=== PATIENT | female | born 1950 | race Caucasian/White ===

== ENCOUNTER → 2017-06-28 | Outpatient (CLI) | payer OTHER ==
[~2017-06-28] MED LIST: ASPIRIN 81 MG PO; ASPIRIN 81 MG T81 MG NG; ASPIRIN325 PO; CALCIUM 600 +1 EAC1 PO; CALCIUM OYSTER500 MG PO; CARDIZEM CD300 MG PO; CELEBREX 200 M200 M1 PO; CELEBREX 200 M200 MG PO; CLARITIN10 MG PO; CLOBETASOL PROP60 G3; CLONIDINE HCL0.2 M2 PO; CLONIDINE0.1 PO; CO Q-10100 MG PO; COLACE100 MG PO; ELESTRIN TOP; ELESTRIN144 GM TRANSDERM; ESTRATEST H.S.1 EACH PO; FISH OIL 1,0001 EAC5 PO; GLUCOSAMINE CHONDROI OR; GLUCOSAMINE-CH1 EA32 PO; GLUCOSAMINE-CH1 EAC2 PO; HYDROCHLOROTH12.5 MG PO; HYDROCODONE-AP1 EAC6 PO; METHOCARBAMOL500 M1 PO; MULTIPLE VITAM1 EAC1 PO; MULTIPLE VITAM1 EAC2 PO; MULTIPLE VITAMI PO; NEURONTIN 300300 M1 PO; NEURONTIN 300M300 M2 PO; NORCO 7.5-3251 EACH PO; PERCOCET 7.5-51 EACH PO; PROGESTERONE100 MG PO; PROMETRIUM100 MG PO; PROVERA5 MG PO; PROZAC 10 MG CA10 MG PO; TRIAMTERENE-HC1 EAC1 PO; VISTARIL50 MG PO
== END ==
LOC: RAD 13:21
DX: Z12.31 Encounter for screening mammogram for malignant neoplasm of breast (principal)

== ENCOUNTER → 2017-10-13 | Outpatient (CLI) | payer OTHER ==
[~2017-10-13] MED LIST changes: +ESTRADIOL 1 MG T1 M1 PO; +WELLBUTRIN XL300 MG PO
== END ==
LOC: NUC 09:06
DX: R10.11 Right upper quadrant pain (principal)

== ENCOUNTER 2017-11-27 14:32 | Emergency (ER) | payer OTHER ==
[~2017-11-27] VITALS: Ht 152.4 cm; Wt 61.7 kg
--- NOTE | ~2017-11-27 | EKG ---
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 : 1950 Requested By: Scooter Huitron Order Number: [id number] MD: Thaddeus Padron Measurements Intervals [place] Rate: 101 P: 33 MS: 154 QRS: 56 QRSD: 90 T: 23 QT: 344 QTc: 446 Interpretive Statements Sinus tachycardia Small inferior Q waves Baseline wander in lead(s) II Compared to ECG 11/28/2013 13:46:54 No significant change was found Electronically Signed On 11-27-2017 17:35:21 SENIOR DIRECTOR MARKETING by Thaddeus Padron [email or web address] <ELECTRONICALLY SIGNED> By: Thaddeus Padron MD, [facility] 11/27/17 1735 1442 144 Thaddeus Padron MD, [facility] /EPI
[~2017-11-27 14:32] MED LIST changes: -ESTRADIOL 1 MG T1 M1 PO; -WELLBUTRIN XL300 MG PO
[2017-11-27 15:17] LABS: ABSOLUTE NEUTROPHILS 5.6 thou/uL (1.4-8.2); EOSINOPHILS 3.1 % (0.0-3.0); HEMATOCRIT 39.9 % (37.0-47.0); HEMOGLOBIN 13.6 gm/dL (12.0-15.0); LYMPHOCYTES 23.2 % (24.0-44.0); MCV 85.3 fL (80.0-100.0); MONOCYTES 5.9 % (1.0-8.0); PLATELET COUNT 288 thou/uL (150-400); POLYS 66.8 % (36.0-66.0); RBC 4.68 mil/uL (4.20-5.00); RDW 13.2 % (10.5-14.5); WBC 8.4 thou/uL (4.0-11.0)
[2017-11-27 15:27] LABS: ANION GAP 11 mmol/L (7-16); BUN 30 mg/dL (7-18); CHLORIDE 106 mmol/L (98-107); CO2 24 mmol/L (21-32); CREATININE 1.2 mg/dL (0.6-1.0); GLUCOSE 129 mg/dL (74-106); POTASSIUM 3.7 mmol/L (3.5-5.1); SODIUM 141 mmol/L (136-145)
[2017-11-27 15:38] LABS: TROPONIN-I < 0.04 ng/mL (<0.06)
[2017-11-27] MEDS ORDERED: ESTRADIOL 1 MG T1 M1 PO (16:08)
[2017-11-27] MEDS ORDERED: WELLBUTRIN XL300 MG PO (16:09)
[2017-11-27 17:55] VITALS: BP 115/76
== END 2017-11-27 17:55 | disposition home or self-care (01) ==
LOC: ER 14:32
PROVIDERS: Emergency Medicine
DX: R07.89 Other chest pain (principal); I10 Essential (primary) hypertension; Z90.49 Acquired absence of other specified parts of digestive tract

== ENCOUNTER → 2018-07-09 | Outpatient (CLI) | payer OTHER ==
[~2018-07-09] MED LIST changes: +ESTRADIOL 1 MG T1 M1 PO; +WELLBUTRIN XL300 MG PO
== END ==
LOC: NUC 09:28
DX: K82.9 Disease of gallbladder, unspecified (principal); I10 Essential (primary) hypertension

== ENCOUNTER → 2018-10-15 | Outpatient (CLI) | payer OTHER | LOC: RAD 14:57 | DX: M43.22 Fusion of spine, cervical region (principal); M50.33 Other cervical disc degeneration, cervicothoracic region; M54.12 Radiculopathy, cervical region ==

== ENCOUNTER → 2018-10-19 | Outpatient (CLI) | payer OTHER | LOC: MRI 10:42 | DX: M50.33 Other cervical disc degeneration, cervicothoracic region (principal); M50.223 Other cervical disc displacement at C6-C7 level; M43.22 Fusion of spine, cervical region; M48.02 Spinal stenosis, cervical region; M25.78 Osteophyte, vertebrae ==

== ENCOUNTER → 2018-12-06 | Outpatient (CLI) | payer OTHER | LOC: RAD 10:36 | DX: M43.22 Fusion of spine, cervical region (principal) ==

== ENCOUNTER → 2019-10-24 | Outpatient (CLI) | payer OTHER | LOC: ULTRA 08:03 | DX: N28.1 Cyst of kidney, acquired (principal); K82.8 Other specified diseases of gallbladder ==

== ENCOUNTER 2019-11-24 05:23 | Inpatient (IN) | payer OTHER ==
[~2019-11-24] VITALS: Ht 152.4 cm; Wt 62.6 kg
[2019-11-24 05:41] VITALS: BP 147/82
[2019-11-24 06:15] LABS: ABSOLUTE NEUTROPHILS 4.6 thou/uL (1.4-8.2); BASOPHILS 0.9 % (0.0-2.0); EOSINOPHILS 7.5 % (0.0-3.0); HEMATOCRIT 42.1 % (37.0-47.0); HEMOGLOBIN 13.9 gm/dL (12.0-15.0); LYMPHOCYTES 26.4 % (24.0-44.0); MCH 29.7 pg (26.0-34.0); MCHC 33.1 g/dL (28.0-37.0); MCV 89.6 fL (80.0-100.0); MONOCYTES 8.4 % (1.0-8.0); PLATELET COUNT 288 thou/uL (150-400); POLYS 56.8 % (36.0-66.0); RBC 4.69 mil/uL (4.20-5.00); RDW 13.4 % (10.5-14.5); WBC 8.1 thou/uL (4.0-11.0)
[2019-11-24 06:23] LABS: ANION GAP 12 mmol/L (7-16); BUN 24 mg/dL (7-18); CALCIUM 9.2 mg/dL (8.5-10.1); CHLORIDE 102 mmol/L (98-107); CO2 24 mmol/L (21-32); CREATININE 1.1 mg/dL (0.6-1.0); GLUCOSE 105 mg/dL (74-106); POTASSIUM 3.6 mmol/L (3.5-5.1); SODIUM 138 mmol/L (136-145)
[2019-11-24 06:33] LABS: ALBUMIN 3.7 g/dL (3.4-5.0); LIPASE 135 U/L (73-393); SGOT 20 U/L (15-37); SGPT 34 U/L (30-65); TOTAL BILIRUBIN 0.5 mg/dL (<0.1-1.0); TOTAL PROTEIN 7.7 g/dL (6.4-8.2); TROPONIN-I <0.06 ng/mL (<0.06)
[2019-11-24 07:42] VITALS: BP 136/84; BP 145/68
--- NOTE | 2019-11-24 08:55 | EKG ---
[facility] [place] [address] ELECTROCARDIOGRAM REPORT Name: VALENTÍN HUDSON Room #: 170-7 ADM IN M.R.#: [id number] Admission: 11/24/19 Attend Phys: Lester Bridges MD Discharge: Date of : 50 Report #: [id number] THIS REPORT FOR: cc: Valentín Melendez DNP, Mary E. DNP Couchonnal, Luis F. MD ~ THIS REPORT FOR: //name// [facility] ED Test Date: 2019-11-24 Test Time: 05:33:25 Pat Name: VALENTÍN HUDSON Department: Room: 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: CAMILLE : 1950 Requested By: Joseph Cheung Order Number: [id number] MD: Celso Deras Measurements Intervals [place] Rate: 94 P: 51 IA: 164 QRS: 57 QRSD: 97 T: 21 QT: 360 QTc: 451 Interpretive Statements Sinus rhythm Probable inferior infarct, old Compared to ECG 11/27/2017 14:42:40 Myocardial infarct finding now present Sinus tachycardia no longer present Inferior Q waves no longer present Q waves no longer present Electronically Signed On 11-24-2019 8:54:08 LEGAL ASSISTANT by Celso Deras [email or web address] <ELECTRONICALLY SIGNED> By: Celso Deras MD 11/24/19 0854 0533 Celso Deras MD /EPI
[2019-11-24 12:07] VITALS: BP 140/73
[2019-11-24 12:30] VITALS: BP 148/74
[2019-11-24 17:50] VITALS: BP 161/82
[2019-11-24 20:14] VITALS: BP 147/71
[2019-11-25 05:47] VITALS: BP 133/77
[2019-11-25] MEDS ORDERED: CRESTOR20 MG PO (07:59)
[2019-11-25 08:04] VITALS: BP 139/86
--- NOTE | 2019-11-25 11:43 | 2DMMODE ---
[facility] [place] [address] [place] [address] 2 D/M-MODE ECHOCARDIOGRAM Name: VALENTÍN HUDSON Room #: 210-P ADM IN M.R.#: [id number] Admission: 11/24/19 Attend Phys: Lester Bridges MD Discharge: Date of : 50 Report #: [id number] THIS REPORT FOR: cc: Valentín Melendez DNP, Mary E. DNP Lammoglia, Francisco J. MD ~ ADDENDUM APPROVED REPORT Study performed: 11/25/2019 10:58:28 EXAM: Comprehensive 2D, Doppler, and color-flow Echocardiogram Patient Location: Echo lab Room #: 210 Status: routine BSA: 1.59 HR: 101 bpm BP: 139/86 mmHg Rhythm: Tachycardia Other Information Study Quality: Adequate Indications Chest Pain Hypertension/HDD 2D Dimensions RVDd: 25.59 mm IVC: 12.00 mm Volumes Left Atrial Volume (Systole) Single Plane 4CH: 17.59 mL Single Plane 2CH: 26.86 mL LA ESV Index: 17.00 mL/m2 Aortic Valve AoV Peak Afshin.: 1.48 m/s AO Peak Gr.: 8.75 mmHg LVOT Max P.80 mmHg LVOT Max V: 1.30 m/s Mitral Valve E/A Ratio: 0.5 MV Decel. Time: 171.42 ms MV E Max Afshin.: 0.67 m/s [facility] [address] [place] [address] 2 D/M-MODE ECHOCARDIOGRAM Name: VALENTÍN HUDSON Room #: 210-P ADM IN M.R.#: [id number] Admission: 11/24/19 Attend Phys: Clover Minor Discharge: Date of : 50 Report #: [id number] MV A Afshin.: 1.41 m/s MV PHT: 49.71 ms IVRT: 129.18 ms Pulmonary Valve PV Peak Afshin.: 1.02 m/s PV Peak Gr.: 4.16 mmHg Pulmonary Vein P Vein S: 0.75 m/s P Vein A: 0.36 m/s P Vein D: 0.37 m/s P Vein A Dur.: 96.9 msec P Vein S/D Ratio: 2.03 Tricuspid Valve TR Peak Afshin.: 2.85 m/s TR Peak Gr.: 32.42 mmHg PA Pressure: 37.00 mmHg Left Ventricle The left ventricle is normal size. There is normal LV segmental wall motion. There is normal left ventricular wall thickness. The left ventricular systolic function is normal. The left ventricular ejection fraction is within the normal range. LVEF is 55-60%. Grade I - abnormal relaxation pattern. Right Ventricle The right ventricle is normal size. The right ventricular systolic function is normal. Atria The left atrium size is normal. The right atrium size is normal. Aortic Valve The aortic valve calcifications noted but cannot exclude vegetation. Valve is poorly visualized Trace aortic regurgitation. There is no aortic valvular stenosis. Mitral Valve The mitral valve is normal in structure. There is no mitral valve regurgitation noted. No evidence of mitral valve stenosis. Tricuspid Valve The tricuspid valve is normal in structure. There is trace to mild tricuspid regurgitation. Estimated PAP 37 mmHg. There is mild pulmonary hypertension. [facility] [address] [place] [address] 2 D/M-MODE ECHOCARDIOGRAM Name: VALENTÍN HUDSON Room #: 210-P [facility] IN ..#: [id number] Admission: 11/24/19 Attend Phys: Clover Minor Discharge: Date of : 50 Report #: [id number] Pulmonic Valve The pulmonary valve is normal in structure. Trace pulmonic regurgitation. Great Vessels The aortic root is normal in size. IVC is normal in size and collapses >50% with inspiration. Pericardium There is no pericardial effusion. <Conclusion> The left ventricle is normal size. LVEF is 55-60%. The aortic valve calcifications noted but cannot exclude vegetation. Valve is poorly visualized, cannot comment on bicuspid/tricuspid structure Trace aortic regurgitation. The mitral valve is normal in structure. The tricuspid valve is normal in structure. There is trace to mild tricuspid regurgitation. Estimated PAP 37 mmHg. There is mild pulmonary hypertension. The pulmonary valve is normal in structure. Trace pulmonic regurgitation. There is no pericardial effusion. <ELECTRONICALLY SIGNED> By: Kelton Wise MD 11/25/19 1141 1141 1141 Kelton Wise MD /INF
[2019-11-25 12:20] VITALS: BP 152/79
[2019-11-25 13:16] VITALS: BP 152/79
[2019-11-25 15:25] VITALS: BP 152/79
== END 2019-11-25 17:01 | disposition home or self-care (01) | DRG 313 ==
LOC: ER 05:23 → EROBS 08:19 → 2N 08:19 → EROBS 10:46 → 2N 12:07
PROVIDERS: Emergency Medicine; ADMIT Hospitalist
DX: R07.89 Other chest pain (principal); I10 Essential (primary) hypertension; K82.9 Disease of gallbladder, unspecified; M19.90 Unspecified osteoarthritis, unspecified site; Z98.1 Arthrodesis status; Z90.49 Acquired absence of other specified parts of digestive tract; Z79.899 Other long term (current) drug therapy; Z79.82 Long term (current) use of aspirin; Z82.49 Family history of ischemic heart disease and other diseases of the circulatory system; Z82.5 Family history of asthma and other chronic lower respiratory diseases
CPT/HCPCS: 10081

== ENCOUNTER 2019-12-11 05:49 | Day surgery (SDC) | payer OTHER ==
[~2019-12-11] VITALS: Ht 152.4 cm; Wt 59.0 kg
[~2019-12-11 05:49] MED LIST changes: +ASA81BEC PO; +CRESTOR20 MG PO; +PANTOPRAZOLE SO20 MG PO
[2019-12-11 06:46] VITALS: BP 136/85
[2019-12-11 06:56] LABS: HEMATOCRIT 38.8 % (37.0-47.0); MCH 30.1 pg (26.0-34.0); MCHC 33.4 g/dL (28.0-37.0); MCV 90.1 fL (80.0-100.0); RBC 4.3 mil/uL (4.20-5.00); RDW 13.2 % (10.5-14.5); WBC 8.8 thou/uL (4.0-11.0)
[2019-12-11 07:05] LABS: CALCIUM 8.9 mg/dL (8.5-10.1); POTASSIUM 3.7 mmol/L (3.5-5.1)
[2019-12-11 07:11] LABS: ALBUMIN 3.4 g/dL (3.4-5.0); TOTAL BILIRUBIN 0.4 mg/dL (<0.1-1.0); TOTAL PROTEIN 6.8 g/dL (6.4-8.2)
[2019-12-11] MEDS ORDERED: OXYCODONE HCL 55 MG PO (08:50)
[2019-12-11] MEDS ORDERED: MIRALAX17 GM PO (08:50)
[2019-12-11] MEDS ORDERED: COLACE 100 MG100 MG PO (08:50)
[2019-12-11] MEDS ORDERED: ACETAMINOPHEN325 M1 PO (08:50)
[2019-12-11 09:02] VITALS: BP 136/85
--- NOTE | 2019-12-12 16:07 | PATH ---
[facility] [address] [place] [address] PATHOLOGY RPT PROCEDURE Name: VALENTÍN HUDSON Room #: DEP [facility] M.R.#: [id number] Admission: 12/11/19 Date of : 50 Discharge: 12/11/19 Report #: [id number] Path Case #: [id number] [facility] Accession Number: [id number] . 01 Material submitted: . gallbladder - GALLBLADDER . 01 Clinical history: . Diseases of gallbladder . 02 Diagnosis: Gallbladder, cholecystectomy: - Mild chronic cholecystitis. (IUV:pit 12/12/2019) QTP 12/12/2019 1256 Local . 02 Electronically signed: . Lina Blakely MD, Pathologist NPI- [id number] . 01 Gross description: . The specimen is received in formalin labeled "Valentín Hudson, gallbladder" and consists of an intact green de la o focally hemorrhagic gallbladder measuring 9.5 x 3.8 x 2.2 cm. The margin is inked black. Opening reveals a lumen filled with viscous green bile and no calculi. The mucosa is green and velvety with an average wall thickness of 0.1 cm. No masses are identified. Office Administration sections are submitted in A1. (SDY; 12/11/2019) SYU/SYU 12/11/2019 1724 Local . 02 Pathologist provided ICD-10: K81.1 . 02 CPT . 053637 Specimen Comment: A courtesy copy of this report has been sent to [phone], [phone] Specimen Comment: [phone] Specimen Comment: Report sent to / DR MAYS Performed at: [address], [place] [id number] MD Alfredito Goncalves MD Phone: [phone] Performed at: [address] [id number] MD Lina Blakely MD Phone: [phone]
== END 2019-12-11 09:40 | disposition home or self-care (01) ==
LOC: OR 05:49 → TBA 05:50 → OR 09:40 → EDSTATUS 12-12 10:54 → OR 12-12 10:54 → EDSTATUS 12-12 10:55 → OR 12-12 18:03
PROVIDERS: Surgery
DX: K81.1 Chronic cholecystitis (principal); I10 Essential (primary) hypertension; K21.9 Gastro-esophageal reflux disease without esophagitis; F32.9 Major depressive disorder, single episode, unspecified; Z98.890 Other specified postprocedural states; Z79.899 Other long term (current) drug therapy; Z90.49 Acquired absence of other specified parts of digestive tract; Z98.51 Tubal ligation status; Z79.82 Long term (current) use of aspirin
CPT/HCPCS: 50010; 50101; 50249; 50411; 50555; 50558; 51489; 52265; 52266; 53307; 53310; 53312; 54022; 54118; 55245; 56462; 56525; 56526; 62110; 62900; 70005

== ENCOUNTER → 2020-07-16 | Outpatient (CLI) | payer OTHER ==
[~2020-07-16] MED LIST changes: +ACETAMINOPHEN325 M1 PO; +COLACE 100 MG100 MG PO; +MIRALAX17 GM PO; +OXYCODONE HCL 55 MG PO
== END ==
LOC: BC 13:16
PROVIDERS: ATTEND Nurse Practitioner
DX: Z12.31 Encounter for screening mammogram for malignant neoplasm of breast (principal)

== ENCOUNTER → 2020-11-05 | Outpatient (CLI) | payer OTHER, MEDICARE | LOC: RAD 14:27 | PROVIDERS: ATTEND Nurse Practitioner | DX: M43.16 Spondylolisthesis, lumbar region (principal); M41.84 Other forms of scoliosis, thoracic region; M54.40 Lumbago with sciatica, unspecified side; R29.890 Loss of height; M25.78 Osteophyte, vertebrae; M41.86 Other forms of scoliosis, lumbar region; G95.89 Other specified diseases of spinal cord ==

== ENCOUNTER → 2021-04-09 | Outpatient (CLI) | payer OTHER, MEDICARE | LOC: CAT 12:09 | PROVIDERS: ATTEND Nurse Practitioner | DX: M47.814 Spondylosis without myelopathy or radiculopathy, thoracic region (principal); M41.84 Other forms of scoliosis, thoracic region; M48.04 Spinal stenosis, thoracic region; M51.24 Other intervertebral disc displacement, thoracic region; M47.816 Spondylosis without myelopathy or radiculopathy, lumbar region; M46.04 Spinal enthesopathy, thoracic region; M47.817 Spondylosis without myelopathy or radiculopathy, lumbosacral region; M51.37 Other intervertebral disc degeneration, lumbosacral region; M48.07 Spinal stenosis, lumbosacral region; M46.07 Spinal enthesopathy, lumbosacral region; K43.9 Ventral hernia without obstruction or gangrene; N28.1 Cyst of kidney, acquired; K59.00 Constipation, unspecified; K76.0 Fatty (change of) liver, not elsewhere classified ==

== ENCOUNTER → 2021-04-28 | Outpatient (CLI) | payer OTHER, MEDICARE ==
[~2021-04-28] VITALS: Ht 149.9 cm; Wt 53.1 kg
[~2021-04-28] MED LIST changes: +CANDICIDAL CAP1 EACH PO; -CARDIZEM CD300 MG PO; +CARDIZEM CD360 MG PO; -PANTOPRAZOLE SO20 MG PO; +PANTOPRAZOLE SO40 M3 PO; +PROZAC20 M1 PO
[2021-04-28 10:51] VITALS: BP 151/83
--- NOTE | 2021-04-28 11:00 | NUR ---
Pain Clinic Assessment: 1. History of Osteoarthritis: SPINE HANDS History of Rheumatoid Arthritis: Not Applicable 2. Height: 4 ft. 11 in. 149.9 cm. Weight: 117.0 lb. oz. 53.071 kg. Patient's BMI: 23.6 3. Vital Signs: BP: 151/83 Pulse: 86 Resp: 14 Temp: 02 Sat: 99 ECG Mon: 4. Pain Intensity: 4 5. Fall Risk: Dizziness: N Needs help standing or walking: N Fallen in the last 3 months: Y Fall risk comments: 6. Patient on Blood Thinner: None 7. History of Hypertension: Y 8. Opioid Therapy greater than 6 weeks: N Opiate Contract Signed: 9. Risk Assessment Tool Provided: low-1 10. Functional Assessment Tool: 11. Recreational Drug Use: Never Drug Type: Tobacco Use: Never Smoker Tobacco Type: Amount or Packs/day: How Many Years: Alcohol Use: Yes Frequency: Weekly Quant: 2-3
--- NOTE | 2021-05-05 08:37 | HPC ---
[facility] [place] [address] PAIN MANAGEMENT CONSULTATION Name: VALENTÍN HUDSON Room #: REG [facility]ita#: [id number] Admission: 04/28/21 Attend Phys: Adam Matthews DO Discharge: Date of : 50 Report #: [id number] THIS REPORT FOR: cc: Valentín Melendez DNP, Mary E. DNP Johnson, James E. DO ~ cc: Valentín Melendez NP DATE OF SERVICE: 04/28/2021 REFERRING PHYSICIAN: Valentín Melendez NP CHIEF COMPLAINT: Low back pain, bilateral lower extremity pain with paresthesias. HISTORY OF PRESENT ILLNESS: As you know, the patient is a 71-year-old female with longstanding history of low back pain, bilateral lower extremity pain with paresthesias. The patient reports pain began spontaneously. No injury or trauma, progressively worsened. She has trialled [id number] medications without much in the way of improvement in symptoms. She sought evaluation through her PCP who put the patient on medication for pain control, unfortunately this symptoms did not improve. She has been in physical therapy for 2-3 months without significant pain improvement. She is currently taking gabapentin, but again noticing minimal benefit with this therapy. Due to lack of improvement with conservative treatment options, the patient was then sent for imaging, which showed significant changes within the lumbar area and she was referred to our clinic to discuss treatment options. The patient reports today her pain is continuous, if walking or standing more than 10 minutes. She describes pain as burning, throbbing, stabbing, numbness and tingling. Places current pain score of 4/10 daily average up to 8/10, worst pain has been 8/10. The patient states that pain is exacerbated with walking and standing, improves with lying down, hot baths and stretching exercises. She has been referred to our service to discuss interventional treatment options to address severe lumbar radiculopathy secondary to severe spinal stenosis. PAST MEDICAL HISTORY: 1. Hypertension. 2. Osteoarthritis. 3. Depression. 4. Low hormones. 5. GERD. PAST SURGICAL HISTORY: 1. Tonsillectomy and adenoidectomy. 2. Appendectomy. 3. Tubal ligation. [facility] [address] [place] [address] PAIN MANAGEMENT CONSULTATION Name: VALENTÍN HUDSON [facility] [id number] Admission: 04/28/21 Attend Phys: Adam Matthews DO Discharge: Date of : 50 Report #: [id number] 4. Laminectomy. 5. Open reduction internal fixation of left distal radius. 6. Rhinoplasty. 7. Open reduction internal fixation, left ankle. 8. Anterior, posterior diskectomy with fusion. 9. Anterior cervical diskectomy with fusion. 10. Cholecystectomy. SOCIAL HISTORY: The patient denies tobacco use. Denies IV or illicit drug use. Admits to an occasional alcohol beverage. She is retired, retired about 6 years ago. She is not receiving workman's compensation. She is not receiving disability income. She is not in litigation in regards to pain. She is unaccompanied today. REVIEW OF SYSTEMS: Positive for wearing corrective eyewear, abdominal pain, lightheadedness, dizziness, numbness and tingling sensations, memory loss with confusion, nervousness, depression, bleeding and bruising tendencies. All other review of systems negative per 12-point review of systems other than those listed in the history of present illness. Pain impact score 36/70, moderate interference of daily activities secondary to pain. ALLERGIES: NO KNOWN DRUG ALLERGIES. CURRENT MEDICATIONS: Diltiazem 360 mg once a day, triamterene and hydrochlorothiazide 37.5/25 mg once a day, clonidine 0.2 mg once a day, celecoxib 200 mg once a day, bupropion 300 mg once a day, Estrace 0.5 mg per day, Provera 5 mg once a day, pantoprazole 40 mg per day, Prozac 20 mg per day. IMAGING: MRI lumbar spine obtained 04/09/2021 shows right convexity scoliosis at L3-L4, grade 1 anterolisthesis of L4 and L5 measuring 7 mm. Broad-based disk bulge at L1-L2, moderate thecal sac stenosis, moderate bilateral facet arthrosis. L2-L3 broad-based posterior disk bulge, endplate osteophyte changes, thickening of the ligamentum flavum and severe facet arthrosis, resulting in severe thecal sac stenosis. L3-L4 broad-based posterior disk bulge with endplate thickening. Severe bilateral facet arthrosis, ligamentum flavum hypertrophy resulting in severe right subarticular zone recess stenosis, bilateral subarticular stenosis moderate and severe, foraminal stenosis with impingement of the exiting L3 nerve roots bilaterally, L4-L5 grade 1 anterolisthesis uncovering of the posterior aspect of the disk, severe facet arthrosis, severe thecal sac stenosis, severe left foraminal stenosis with impingement of the exiting L4 nerve root. Moderate right stenosis. L5-S1 broad-based disk bulge, no significant central canal stenosis, severe right and moderate left facet arthrosis, moderate to severe medial right and severe medial left foraminal stenosis, effacement of the exiting L5 nerve roots. PQRS: The patient has known arthritic changes of the lumbar spine, bilateral [facility] [address] [place] [address] PAIN MANAGEMENT CONSULTATION Name: VALENTÍN HUDSON Room #: REG [facility]#: [id number] Admission: 04/28/21 Attend Phys: Adam Matthews DO Discharge: Date of : 50 Report #: [id number] hands and hips. No rheumatoid arthritis. She is placing pain intensity today up to 8/10. She is not a fall risk, but did have a fall in last 3 months, apparently tripping over objects at home. This has been rectified by removing those objects. The patient is not on blood thinners, but is treated for hypertension. She is not on chronic opioids, has a low opioid addiction potential. Pain impact is 36/70, moderate interference of daily activities secondary to pain. PHYSICAL EXAMINATION: VITAL SIGNS: Blood pressure 151/83, pulse 86, respiratory rate 14 and unlabored. The patient is 99% on room air. Height 4 feet 11 inches tall, weight 117 pounds, BMI calculated 23.6. GENERAL: Well-developed, well-nourished, well-hydrated 71-year-old female appearing her stated age, pain is rated today around 4/10. HEENT: Normocephalic and atraumatic. Pupils are equal, round and responsive. She is somewhat emotionally labile. She is wearing a mask in compliance with COVID-19 regulations. LUNGS: Appear clear. No wheeze, rhonchi or rales. CARDIOVASCULAR: Regular. No appreciable gallop, no rub. ABDOMEN: Soft, nontender. EXTREMITIES: Show no clubbing, no cyanosis, no edema. MUSCULOSKELETAL: Lower extremity strength equal and symmetrical 5/5 intact to light touch from L1 through S2 dermatomes. Seated straight leg raising negative. Supine straight leg raising is positive. Fabere's test is negative. Modified Gaenslen's positive for axial back pain. Ankle clonus negative. Babinski is negative. Gait is antalgic. Muscle bulk and tone appears symmetrical. Deep tendon reflexes are symmetrical 1+/4 at patella and Achilles. ASSESSMENT: 1. Lumbar radiculopathy. 2. Severe central canal stenosis of lumbar spine. 3. Severe neural foraminal stenosis of lumbar spine. 4. Severe lateral recess stenosis of the lumbar spine. 5. Severe facet arthropathy of lumbar spine. 6. Displacement of lumbar intervertebral disk with radiculopathy. 7. Chronic intractable pain. PLAN: 1. Based on today's physical exam, the history the patient has provided, the description the patient uses in regards to pain as well as the location of symptoms, likely source of the patient's pain is a lumbar radiculopathy. The patient has multilevel severe central canal stenosis that is the source of symptoms. Her severe stenosis is at the L2-L3, L3-L4, L4-L5 levels combining to cause the symptoms the patient is experiencing. We discussed this with the patient today. We spent over 30 minutes of time reviewing the patient's MRI and how the MRI findings correlate to her current symptoms. After this discussion, [place] [address] PAIN MANAGEMENT CONSULTATION Name: BECCAVALENTÍN SANTACRUZ Room #: ROSANGELA Abebe#: [id number] Admission: 04/28/21 Attend Phys: Adam Matthews DO Discharge: Date of : 50 Report #: [id number] we then discussed the treatment options. The following was discussed with the patient today. We discussed physical therapy, stretching exercises and core strengthening as a treatment approach. We discussed suggestions and medication management to include neuropathic medications such as amitriptyline, nortriptyline, Cymbalta, Lyrica and gabapentin. We discussed lumbar epidural injections under fluoroscopic guidance for which the patient was referred to our clinic. We discussed spinal cord stimulator therapy as an option to improve analgesia benefit for a short period of time. We also discussed surgical options were decompression would have to be a 3-level fusion with instrumentation. After reviewing the risks and benefits of all proposed treatment options, the patient chose to follow up with her PCP. 2. No medication changes made at today's visit. The patient will continue current medical therapy as prior prescribed. 3. We will be available to see the patient back in followup visit if she wishes to discuss interventional treatment such as epidural injections as a treatment course or even to discuss the trial of a spinal cord stimulator. We will make ourselves available if she wishes to discuss this further. We are hopeful that the patient will be able to follow up with her PCP quickly and a plan can be device to help her with her symptoms. If we are involved, we will be more than willing to see her back in followup visit. 4. We wish to thank nurse practitioner, Valentín Melendez, for the opportunity to see this patient in consultation. We will keep you apprised of response to treatment, if she does choose to return to our clinic to undergo treatment. Again, we wish to thank you for the opportunity to see the patient in consultation. <ELECTRONICALLY SIGNED> By: Adam Matthews DO 05/05/2137 21 Adam Matthews DO /nt
== END ==
LOC: PAIN 09:53
PROVIDERS: ATTEND Anesthesiology Pain Medicine
DX: G89.29 Other chronic pain (principal); M47.26 Other spondylosis with radiculopathy, lumbar region; M51.16 Intervertebral disc disorders with radiculopathy, lumbar region; M48.02 Spinal stenosis, cervical region; M48.061 Spinal stenosis, lumbar region without neurogenic claudication; I10 Essential (primary) hypertension; M19.90 Unspecified osteoarthritis, unspecified site; K21.9 Gastro-esophageal reflux disease without esophagitis; Z90.49 Acquired absence of other specified parts of digestive tract; Z68.23 Body mass index [BMI] 23.0-23.9, adult; Z79.891 Long term (current) use of opiate analgesic; Z79.899 Other long term (current) drug therapy

== ENCOUNTER → 2021-06-01 | Outpatient (CLI) | payer OTHER, MEDICARE ==
[~2021-06-01] VITALS: Ht 149.9 cm; Wt 54.7 kg
--- NOTE | ~2021-06-01 | HPC ---
[facility] [place] [address] PAIN MANAGEMENT CONSULTATION Name: VALENTÍN HUDSON Room #: REG [facility]OAN [facility]#: [id number] Admission: 06/01/21 Attend Phys: Adam Matthews DO Discharge: Date of : 50 Report #: [id number] THIS REPORT FOR: cc: Valentín Melnedez DNP, Mary E. DNP Johnson, James E. DO ~ cc: MIGUEL ANGEL Patten DATE OF SERVICE: 06/01/2021 CHIEF COMPLAINT: Low back pain, bilateral lower extremity pain with paresthesias, left greater than right. HISTORY OF PRESENT ILLNESS: As you know, the patient is a 71-year-old female with longstanding history of low back pain, bilateral lower extremity pain, left greater than right. She states pain began spontaneously. No injury or trauma. She trialled [id number] medications without improvement in symptoms. She sought further evaluation through her PCP who sent the patient on for imaging study, which showed severe central canal stenosis, severe neural foraminal stenosis and severe lateral recess stenosis at multiple levels. She was referred to our clinic to trial epidural injection under fluoroscopic guidance. She returns today in followup visit having received authorization to undergo the epidural injection requested. She is placing pain today at a level of 7/10. She has escalated dose of gabapentin 1200 mg b.i.d., but has found unhelpful today. She is denying side effects, but also noticing no improvement in symptoms. Allergies: No known drug allergies. CURRENT MEDICATIONS: Diltiazem, triamterene, hydrochlorothiazide, clonidine, celecoxib, bupropion, Estrace, Provera, pantoprazole, Prozac. SOCIAL HISTORY: The patient denies tobacco. Denies IV or illicit drug use. Admits to occasional alcohol beverage. She is retired for about 6 years. She is unaccompanied today. IMAGING: No new imaging available. PQRS: The patient has known arthritic changes of lumbar spine, bilateral hips and hands. No rheumatoid arthritis. She is placing pain intensity today at 7/10. She is not a fall risk, but has had a fall in last 3 months as she does not use any type of ambulatory device. She is treated for hypertension, but not on any blood thinners. She is not on chronic opioids, has a low opioid addiction potential based on assessment tool. Pain impact is 36/70, moderate interference of daily activities secondary to pain. PHYSICAL EXAMINATION: [facility] [address] [place] [address] PAIN MANAGEMENT CONSULTATION Name: VALENTÍN HUDSON Room #: REG [facility]#: [id number] Admission: 06/01/21 Attend Phys: Adam Matthews DO Discharge: Date of : 50 Report #: [id number] VITAL SIGNS: Blood pressure 152/87, pulse 92, respiratory rate 16 and unlabored. The patient 97% on room air. Height 4 feet 11 inches tall, weight 120.6 pounds, BMI calculated 24.3. GENERAL: Well-developed, well-nourished, well-hydrated, 71-year-old female appearing stated age, pain is rated today at 7/10. HEENT: normocephalic, atraumatic. Pupils equal, round and responsive and she is wearing a mask in compliance with COVID-19 regulations. EXTREMITIES: Show no clubbing, no cyanosis and no edema. MUSCULOSKELETAL: Lower extremity strength is symmetrical 5/5. Muscle bulk and tone is symmetrical comparing lower extremities. Seated straight leg raising negative. Supine straight leg raising positive. Fabere's test is negative. Modified Gaenslen's positive for axial back pain. Gait is antalgic favoring left lower extremity. ASSESSMENT: 1. Symptomatic lumbar radiculopathy. 2. Severe central canal stenosis of lumbar spine. 3. Severe neural foraminal stenosis of lumbar spine. 4. 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 5. Severe facet arthropathy of lumbar spine. 6. Displacement of lumbar intervertebral disk with radiculopathy. 7. Chronic intractable pain. PLAN: 1. The patient returns today in followup visit to undergo lumbar epidural injection under fluoroscopic guidance. We have received authorization for the patient to undergo that procedure today. The patient has been advised of the risks and the benefits of this procedure. These risks include but are not necessarily limited to bleeding, bruising, infection, worsening pain, no relief of pain, also risk of temporary or permanent muscle weakness, temporary or permanent nerve damage, possible paralysis, post-dural puncture headache and . The patient states understood and wished to proceed. 2. No medication changes made at today's visit. The patient will continue current medical therapy as prior prescribed. 3. We plan to see the patient back in followup visit in 30 days. At that time, review the efficacy of today's epidural injection and determine next in the series of epidural injections might be recommended. PROCEDURE NOTE DESCRIPTION OF PROCEDURE: L5-S1 left parasagittal epidural steroid injection under fluoroscopic guidance. This is the first procedure of the first series that the patient is undergoing. After obtaining written consent, the patient was taken back to the fluoroscopy suite, placed in a prone position with pillow under the abdomen to decrease [address] [address] PAIN MANAGEMENT CONSULTATION Name: VALENTÍN HUDSON Room #: REG [facility]#: [id number] Admission: 06/01/21 Attend Phys: Adam Matthews DO Discharge: Date of : 50 Report #: [id number] lumbar lordosis. The skin overlying the lumbosacral area was then prepped and draped in aseptic fashion. The L5-S1 vertebral interspace was then identified by AP fluoroscopy. The skin and subcutaneous tissue overlying the target site of injection was anesthetized with 3 mL 1% lidocaine. A 20-gauge 3-1/2 inch Tuohy needle was then advanced under fluoroscopic guidance towards the epidural space using a left parasagittal approach. The epidural space was identified using loss of resistance to air technique. After negative aspiration for heme or cerebrospinal fluid, a total of 1 mL of Omnipaque was injected. A lumbar epidurogram was confirmed using both AP and lateral fluoroscopy. After negative aspiration for heme or cerebrospinal fluid, 5 mL of a solution containing 2 mL 40 mg per mL 80 mg total triamcinolone along with 3 mL of lidocaine 1% was injected in increments. Contrast spread was noted in the posterior epidural space. The needle was then retracted approximately half way and needle tract flushed with 1 mL of 1% lidocaine. Needle was then removed. There were no apparent sensory or motor deficits in the lower extremity following the procedure. A sterile bandage was placed over the injection site. The heart rate, pulse, oximetry and blood pressure were continuously monitored after the procedure. There were no apparent complications. The patient tolerated the procedure well and was carefully escorted to the recovery room in stable condition. There were no apparent complications. After meeting discharge criteria, the patient was then discharged home. By: [id number] Adam Matthews DO /nt
[2021-06-01 12:40] VITALS: BP 152/87
--- NOTE | 2021-06-01 12:47 | NUR ---
Pain Clinic Assessment: 1. History of Osteoarthritis: SPINE HANDS History of Rheumatoid Arthritis: Not Applicable 2. Height: 4 ft. 11 in. 149.9 cm. Weight: 120.6 lb. oz. 54.704 kg. Patient's BMI: 24.3 3. Vital Signs: BP: 152/87 Pulse: 92 Resp: 16 Temp: 02 Sat: 97 ECG Mon: 4. Pain Intensity: 7 when walking 5. Fall Risk: Dizziness: N Needs help standing or walking: N Fallen in the last 3 months: Y Fall risk comments: 6. Patient on Blood Thinner: None 7. History of Hypertension: Y 8. Opioid Therapy greater than 6 weeks: N Opiate Contract Signed: 9. Risk Assessment Tool Provided: low-1 10. Functional Assessment Tool: 11. Recreational Drug Use: Never Drug Type: Tobacco Use: Never Smoker Tobacco Type: Amount or Packs/day: How Many Years: Alcohol Use: Yes Frequency: Special Occasions Quant: 2
== END | disposition home or self-care (01) ==
LOC: PAIN 10:46
PROVIDERS: ATTEND Anesthesiology Pain Medicine
DX: M51.16 Intervertebral disc disorders with radiculopathy, lumbar region (principal); M48.061 Spinal stenosis, lumbar region without neurogenic claudication; M47.26 Other spondylosis with radiculopathy, lumbar region; G89.29 Other chronic pain; I10 Essential (primary) hypertension; M19.90 Unspecified osteoarthritis, unspecified site; Z98.890 Other specified postprocedural states; Z79.899 Other long term (current) drug therapy

== ENCOUNTER → 2021-07-06 | Outpatient (CLI) | payer OTHER, MEDICARE ==
[~2021-07-06] VITALS: Ht 149.9 cm; Wt 53.7 kg
[2021-07-06 12:27] VITALS: BP 165/86
--- NOTE | 2021-07-06 12:30 | NUR ---
Pain Clinic Assessment: 1. History of Osteoarthritis: SPINE HANDS History of Rheumatoid Arthritis: Not Applicable 2. Height: 4 ft. 11 in. 149.9 cm. Weight: 118.4 lb. oz. 53.706 kg. Patient's BMI: 23.9 3. Vital Signs: BP: 165/86 Pulse: 92 Resp: 16 Temp: 02 Sat: 96 ECG Mon: 4. Pain Intensity: 2 5. Fall Risk: Dizziness: N Needs help standing or walking: N Fallen in the last 3 months: N Fall risk comments: 6. Patient on Blood Thinner: None 7. History of Hypertension: Y 8. Opioid Therapy greater than 6 weeks: N Opiate Contract Signed: 9. Risk Assessment Tool Provided: low-1 10. Functional Assessment Tool: 11. Recreational Drug Use: Never Drug Type: Tobacco Use: Never Smoker Tobacco Type: Amount or Packs/day: How Many Years: Alcohol Use: Yes Frequency: Weekly Quant: 2
--- NOTE | 2021-07-07 07:55 | HPC ---
[facility] [place] [address] PAIN MANAGEMENT CONSULTATION Name: VALENTÍN HUDSON Room #: REG [facility] [id number] Admission: 07/06/21 Attend Phys: Adam Matthews DO Discharge: Date of : 50 Report #: [id number] THIS REPORT FOR: cc: Valentín Melendez DNP, Mary E. DNP Johnson, James E. DO ~ cc: MIGUEL ANGEL Patten DATE OF SERVICE: 07/06/2021 DATE OF SERVICE: 07/06/2021 REFERRING PHYSICIAN: Valentín Melendez NP CHIEF COMPLAINT: Low back pain, bilateral lower extremity pain with paresthesias, left greater than right. HISTORY OF PRESENT ILLNESS: As you know, the patient is a 71-year-old female with longstanding history of low back pain, bilateral lower extremity pain, left greater than right. She states her pain began spontaneously. No injury or trauma. The patient is noted to have severe central canal stenosis, severe neural foraminal stenosis and severe lateral recess stenosis at multiple levels. She was referred to our clinic to trial epidural injections to determine if these would be able to improve overall pain. If the patient was to see no prolonged improvement or lack of efficacy. She was going to be referred on to Neurosurgery. She underwent first a series of lumbar epidural injections under fluoroscopic guidance at our visit of 06/01/2021. She reports that injection provided 80% improvement in overall pain, but unfortunately only lasted a short period of time. She has had recurrence of symptoms now for which she places pain score at 2/10. She returns today in followup visit requesting to undergo the second in the series of epidural injections in hopes of improving lumbar radicular pain. ALLERGIES: No known drug allergies. CURRENT MEDICATIONS: See chart. SOCIAL HISTORY: The patient denies tobacco. Denies IV or illicit drug use. Denies any chronic alcohol use. She is retired about 6 years ago, unaccompanied today. IMAGING: No new imaging available. PQRS: The patient has known arthritic changes of lumbar spine, bilateral hips and knees. Reporting no rheumatoid arthritis. She is placing pain today at 2/10, not a fall risk, has not had a fall in last 3 months. She is not on blood thinners, but is treated for hypertension. She is not on any chronic opioids, [address] [address] PAIN MANAGEMENT CONSULTATION Name: VALENTÍN HUDSON Room #: REG [facility] [id number] Admission: 07/06/21 Attend Phys: Adam Matthews DO Discharge: Date of : 50 Report #: [id number] has a low opiate addiction potential. Pain impact remains in the moderate level. PHYSICAL EXAMINATION: VITAL SIGNS: Blood pressure 165/86, pulse 92, respiratory rate 16 and unlabored. The patient is 96% on room air. Height 4 feet 11 inches tall, weight 118.4 pounds, BMI calculated 23.9. GENERAL: Well-developed, well-nourished, well-hydrated 71-year-old female appearing stated age, pain is rated today 2/10. HEENT: Normocephalic, atraumatic. Pupils equal, round and responsive. She is wearing a mask in compliance with COVID-19 regulations. EXTREMITIES: Show no clubbing, no cyanosis. No appreciable edema. MUSCULOSKELETAL: Lower extremity strength remains symmetrical again today. Seated straight leg raising negative. Supine straight leg raising positive. Approximately 45-degree angle. Ankle clonus negative. Babinski is negative. Lumbar provocation testing is met with increase in pain. There does appear to be well-healed surgical scar over the lumbar area. ASSESSMENT: 1. Symptomatic lumbar radiculopathy. 2. Severe central canal stenosis of lumbar spine. 3. Severe neural foraminal stenosis of lumbar spine. 4. 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 5. Severe facet arthropathy, lumbar spine. 6. Displacement of lumbar intervertebral disk with radiculopathy. 7. Chronic intractable pain. PLAN: The patient returns today in followup visit to undergo the second in the series of lumbar epidural injections. She reports good benefit anywhere from 75-80% improvement in overall pain, but unfortunately the relief of symptoms were short-lived. She returns today to undergo the second in the series of epidural injections in hopes of prolonged improvement in symptoms. We did discuss with the patient if she only sees transient improvement with this injection, she could discuss her case further with her PCP whether or not they want to start medications or look towards a surgical referral. We are hopeful the patient will see good benefit. We will see her back in followup visit for the next in the series of epidural injections if deemed appropriate. PROCEDURE NOTE: DESCRIPTION OF PROCEDURE: L5-S1 left paramedian epidural steroid injection under fluoroscopic guidance. This is the first procedure of the second series that the patient is undergoing. After obtaining written consent, the patient was taken back to the fluoroscopy [facility] [address] [place] [address] PAIN MANAGEMENT CONSULTATION Name: VALENTÍN HUDSON Room #: REG [facility] Cleve#: [id number] Admission: 07/06/21 Attend Phys: Adam Matthews DO Discharge: Date of : 50 Report #: [id number] suite, placed in a prone position with pillow under the abdomen to decrease lumbar lordosis. The skin overlying the lumbosacral area was then prepped and draped in aseptic fashion. The L5-S1 vertebral interspace was then identified by AP fluoroscopy. The skin and subcutaneous tissue overlying the target site of injection was anesthetized with 3 mL 1% lidocaine. A(n) 20-gauge 3-1/2 inch Tuohy needle was then advanced under fluoroscopic guidance towards the epidural space using a left paramedian approach. The epidural space was identified using loss of resistance to air technique. After negative aspiration for heme or cerebrospinal fluid, a total of 1 mL of Omnipaque was injected. A lumbar epidurogram was confirmed using both AP and lateral fluoroscopy. After negative aspiration for heme or cerebrospinal fluid, 5 mL of solution containing 2 mL of 40 mg per mL 80 mg total triamcinolone along with 3 mL of lidocaine 1% was injected in increments. Contrast spread was noted post epidural space. The needle was then retracted approximately half way and needle tract flushed with 1 mL of 1% lidocaine. Needle was then removed. There were no apparent sensory or motor deficits in the lower extremity following the procedure. A sterile bandage was placed over the injection site. The heart rate, pulse, oximetry and blood pressure were continuously monitored after the procedure. There were no apparent complications. The patient tolerated the procedure well and was carefully escorted to the recovery room in stable condition. There were no apparent complications. After meeting discharge criteria, the patient was then discharged home. <ELECTRONICALLY SIGNED> By: Adam Matthews DO 07/07/21 [id number] Adam Matthews DO /karime
== END | disposition home or self-care (01) ==
LOC: PAIN 07:57
PROVIDERS: ATTEND Anesthesiology Pain Medicine
DX: M51.16 Intervertebral disc disorders with radiculopathy, lumbar region (principal); M47.26 Other spondylosis with radiculopathy, lumbar region; M48.061 Spinal stenosis, lumbar region without neurogenic claudication; G89.29 Other chronic pain; I10 Essential (primary) hypertension; M19.90 Unspecified osteoarthritis, unspecified site; Z98.890 Other specified postprocedural states; Z79.899 Other long term (current) drug therapy

== ENCOUNTER → 2021-08-04 | Outpatient (CLI) | payer OTHER, MEDICARE ==
[~2021-08-04] VITALS: Ht 149.9 cm; Wt 52.0 kg
[~2021-08-04] MED LIST changes: +TRAMADOL 50 MG50 MG PO
--- NOTE | ~2021-08-04 | HPC ---
[facility] [place] [address] PAIN MANAGEMENT CONSULTATION Name: VALENTÍN HUDSON Room #: REG YOAN PoonConchita#: [id number] Admission: 08/04/21 Attend Phys: Adam Matthews DO Discharge: Date of : 50 Report #: [id number] THIS REPORT FOR: cc: Valentín Melendez DNP, Mary E. DNP Johnson, James E. DO ~ cc: MIGUEL ANGEL Patten DATE OF SERVICE: 08/04/2021 CHIEF COMPLAINT: Right buttock and posterolateral thigh pain. HISTORY OF PRESENT ILLNESS: As you know, the patient is a 71-year-old female who was seen in consultation per the request of her nurse practitioner for evaluation for suspected lumbar radiculopathy. She underwent a lumbar epidural injection under fluoroscopic guidance, which resolved her low back pain and lower extremity symptoms except for right buttock and posterolateral thigh pain. She returns today stating her pain is at 0/10 for most of the time, but with activity, it raises to a level of 8/10. She is able to localize pain directly over the sacroiliac joint, radiating pain towards the anterior groin consistent with an SI joint dysfunction. There is no known intrinsic hip pathology. She returns today to discuss this single generator of pain. ALLERGIES: No known drug allergies. CURRENT MEDICATIONS: See chart. SOCIAL HISTORY: The patient denies tobacco. Denies IV or illicit drug use. Denies any chronic alcohol use. She retired about 6 years ago, unaccompanied today. IMAGING: No new imaging available. PQRS: The patient has known arthritic changes of lumbar spine, bilateral hips and knees. No rheumatoid arthritis. Placing pain today anywhere from 0-8/10 depending on activity. She is not at fall risk, has not had a fall in last 3 months. She is not on blood thinners, but history of hypertension. She is on no chronic opioids, has a low opioid addiction potential. Pain impact is 36/70, moderate interference of daily activities secondary to pain. PHYSICAL EXAMINATION: VITAL SIGNS: Blood pressure 131/78, pulse 88, respiratory rate 14 and unlabored. The patient is 100% on room air. Height 4 feet 11 inches tall, weight 114.6 pounds, BMI calculated 23.1. GENERAL: Well-developed, well-nourished, well-hydrated 71-year-old female appearing stated age. Pain is rated at around 0/10 with minimal activity, 8/[address] [place] [address] PAIN MANAGEMENT CONSULTATION Name: VALENTÍN HUDSON Room #: REG [facility]#: [id number] Admission: 08/04/21 Attend Phys: Adam Matthews DO Discharge: Date of : 50 Report #: [id number] HEENT: Normocephalic, atraumatic. She is wearing a mask in compliance with COVID-19 regulations. EXTREMITIES: Show no clubbing, no cyanosis, no edema. MUSCULOSKELETAL: Lower extremity strength is symmetrical, 5/5. Seated straight leg raising negative. Supine straight leg raising remains positive. Donavon's test is positive for SI joint dysfunction on the right. Thigh thrust maneuver is positive on the right. Raul's positive on the right, negative left. ASSESSMENT: 1. Right sacroiliac joint dysfunction. 2. Right sacroiliac joint pain. 3. Symptomatic lumbar radiculopathy. 4. Severe central canal stenosis of lumbar spine. 5. Severe neural foraminal stenosis of lumbar spine. 6. 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 7. Severe facet arthropathy of lumbar spine. 8. Displacement of lumbar intervertebral disk with radiculopathy. 9. Lumbar degeneration. 10. Chronic intractable pain. PLAN: 1. The patient returns today in followup visit having undergone a lumbar epidural injection under fluoroscopic guidance at her last visit. This injection provided significant pain improvement. She has had complete resolution of back pain except for this right buttock and posterolateral thigh pain. Otherwise, her symptoms have greatly improved. She is very pleased with response to that treatment. She returns today to discuss this right upper buttock and posterolateral thigh pain that she is experiencing with activity. 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 A deep palpation of the area as well as provocating testing of the SI joint were positive on the right, negative left. I am unable to elicit any intrinsic hip pathology as she noted no pain with active and passive range of motion of the hip, nor with external and internal rotation of the right hip. The pain the patient was experiencing was palpatory over the SI joint consistent with the patient's current distribution. We discussed with the patient the treatment options for SI joint dysfunction. She chose to undergo an SI joint injection under fluoroscopic guidance today. The patient has been advised risks and benefits of an SI joint injection. These risks include but are not necessarily limited to bleeding, bruising, infection, worsening pain, no relief of pain, also risk of temporary or permanent muscle weakness, temporary or permanent nerve damage, possible joint destruction and . The patient states understood and wished to proceed. 2. No medication changes made at today's visit. The patient will continue current medical therapy as prior prescribed. 3. We will see the patient back in followup visit on an as needed basis. We [facility] [place] [address] PAIN MANAGEMENT CONSULTATION Name: VALENTÍN HUDSON Room #: REG [facility] Mis#: [id number] Admission: 08/04/21 Attend Phys: Adam Matthews DO Discharge: Date of : 50 Report #: [id number] are hopeful the patient will see good benefit with today's injection. We will see her back for an epidural injection or repeating SI joint injection as necessary. PROCEDURE NOTE DESCRIPTION OF PROCEDURE: Right sacroiliac joint injection under fluoroscopic guidance. This is the first procedure of the first series that the patient is undergoing. After obtaining written consent, the patient was taken back to the fluoroscopy suite and placed in a prone position with a pillow under the pelvis to decrease the lumbar lordosis. The skin of the gluteal-sacral area overlying the right sacroiliac joint was prepped and draped in an aseptic fashion. A medial to lateral oblique projection allowed separation of the anterior and posterior branches of the joint space. The skin and subcutaneous tissue overlying the target site of injection was anesthetized using 3 mL of 1% lidocaine. A 22-gauge 3-1/2-inch needle with a bent tip was directed into the inferior aspect of the sacroiliac joint using a posterior approach. A ____ giving way ____ at the needle hub was noted once the dorsal sacroiliac and interosseous ligaments were engaged. After negative aspiration for heme, a total of 0.4 mL of Omnipaque was injected, outlining the coin-shaped inferior recess of the joint. Provocation responses consisting of intense buttock pain were negative. After negative aspiration for heme, 3 mL of a solution containing 1 mL 40 mg per mL, 40 mg total triamcinolone and 2 mL of bupivacaine 0.5% was slowly injected. The needle was then retracted approximately usp and the needle track was flushed with 1 mL of 1% lidocaine. Needle was then removed. A sterile bandage was placed over the injection site. There were no new sensory deficits present in the lower extremities. The heart rate, pulse oximetry and blood pressure were continuously monitored after the procedure. There were no apparent complications. The patient tolerated the procedure well and was carefully escorted to the recovery room in stable condition. The VAS was 8/10 before the procedure and 1/10 ten minutes after the procedure. After meeting discharge criteria, the patient was discharged home. By: [id number] Adam Matthews DO /karime
[2021-08-04 11:18] VITALS: BP 131/78
--- NOTE | 2021-08-04 12:01 | NUR ---
Pain Clinic Assessment: 1. History of Osteoarthritis: SPINE HANDS History of Rheumatoid Arthritis: Not Applicable 2. Height: 4 ft. 11 in. 149.9 cm. Weight: 114.6 lb. oz. 51.982 kg. Patient's BMI: 23.1 3. Vital Signs: BP: 131/78 Pulse: 88 Resp: 14 Temp: 02 Sat: 100 ECG Mon: 4. Pain Intensity: 0 SITTING 8 W/ACTIVITY 5. Fall Risk: Dizziness: N Needs help standing or walking: N Fallen in the last 3 months: N Fall risk comments: 6. Patient on Blood Thinner: None 7. History of Hypertension: Y 8. Opioid Therapy greater than 6 weeks: N Opiate Contract Signed: 9. Risk Assessment Tool Provided: low-1 10. Functional Assessment Tool: 11. Recreational Drug Use: Never Drug Type: Tobacco Use: Never Smoker Tobacco Type: Amount or Packs/day: How Many Years: Alcohol Use: Yes Frequency: Special Occasions Quant: 1
== END | disposition home or self-care (01) ==
LOC: PAIN 07:15
PROVIDERS: ATTEND Anesthesiology Pain Medicine
DX: M53.3 Sacrococcygeal disorders, not elsewhere classified (principal); M51.16 Intervertebral disc disorders with radiculopathy, lumbar region; M48.061 Spinal stenosis, lumbar region without neurogenic claudication; M47.26 Other spondylosis with radiculopathy, lumbar region; G89.29 Other chronic pain; I10 Essential (primary) hypertension; M19.90 Unspecified osteoarthritis, unspecified site; Z98.890 Other specified postprocedural states; Z79.899 Other long term (current) drug therapy; Z79.82 Long term (current) use of aspirin

== ENCOUNTER → 2021-08-17 | Outpatient (CLI) | payer OTHER, MEDICARE | LOC: RAD 09:04 | PROVIDERS: ATTEND Nurse Practitioner | DX: T14.8XXA Other injury of unspecified body region, initial encounter (principal); R53.83 Other fatigue; I10 Essential (primary) hypertension; J98.11 Atelectasis ==

== ENCOUNTER → 2021-10-28 | Outpatient (CLI) | payer OTHER, MEDICARE | LOC: BC 10:09 | PROVIDERS: ATTEND Nurse Practitioner | DX: Z12.31 Encounter for screening mammogram for malignant neoplasm of breast (principal); N64.89 Other specified disorders of breast ==

== ENCOUNTER → 2021-11-29 | Outpatient (CLI) | payer OTHER, MEDICARE | LOC: ULTRA 13:26 → BC 14:37 → ULTRA 14:38 | PROVIDERS: ATTEND Internal Medicine Hematology & Oncology | DX: R92.2 Inconclusive mammogram (principal); N60.41 Mammary duct ectasia of right breast; Z15.01 Genetic susceptibility to malignant neoplasm of breast; Z15.02 Genetic susceptibility to malignant neoplasm of ovary; Z15.89 Genetic susceptibility to other disease ==